=== PATIENT | male | born 2000 | race Caucasian/White ===

== ENCOUNTER 2022-07-28 11:25 | Emergency (ER) | payer OTHER, SELFPAY ==
[2022-07-28 11:39] VITALS: BP 133/64; PULSE 80; RESP 16; TEMP 36.8; O2SAT 100; BMI 20.5
[2022-07-28] MEDS: ACETAMINOPHEN 325 MG TABLET 975 MG PO (12:31)
[2022-07-28] MEDS: KETOROLAC 10 MG TABLET PO (12:31)
--- NOTE | 2022-07-28 13:31 | ED_ITS ---
HPI - Wound/Laceration <SIDNEY Bo - Last Filed: 07/28/22 13:38> General Chief Complaint: Wound/Laceration Stated Complaint: Lt index finger injury/sliced open Time Seen by Provider: 07/28/22 12:08 Source: patient Mode of arrival: Ambulatory History of Present Illness HPI narrative: This is a 22-year-old male who presents emergency department after a work- related injury where he accidentally cut the dorsum of his left index finger near the MCP joint while cutting meat. This happened just prior to arrival, states there is a 2 cm laceration with mild bleeding. Denies any range of motion deficit, sensation deficit, states his last tetanus was in 2019, denies any bleeding disorder. Has not had any medication prior to arrival. Related Data Allergies Allergy/AdvReac Type Severity Reaction Status Date / Time amoxicillin Allergy Verified 07/28/22 11:47 cefazolin Allergy Verified 07/28/22 11:47 cephapirin [From Cefadyl] Allergy Verified 07/28/22 11:47 Review of Systems <SIDNEY Bo - Last Filed: 07/28/22 13:38> Review of Systems ROS Unobtainable: All systems reviewed & are unremarkable except as noted in HPI and below Exam <SIDNEY Bo - Last Filed: 07/28/22 13:38> Narrative Exam Narrative: MSK: moves all extremities, neurovascularly intact, no weakness, normal tone, flat verses laceration to the dorsum of his left index finger mid shaft between MCP and PIP joint and 2 cm. Bleeding controlled with a pressure dressing, wound was irrigated by the RN, additional cleansing by myself, wound edges were well approximated with 6 sutures. CSM remains intact, full mobility both extension and flexion isolated each joint of his finger without suspicion for tendon injury. Skin: brisk capillary refill, without pallor or erythema Neuro: normal speech and cognition, A&O x3, ambulatory, clear speech Psych: mental status is grossly normal, congruent mood, normal affect, pleasant and cooperative Initial Vital Signs Initial Vital Signs: Vital Signs Temperature 98.3 F 07/28/22 11:39 Pulse Rate 80 07/28/22 11:39 Respiratory Rate 16 07/28/22 11:39 Blood Pressure 133/64 07/28/22 11:39 Pulse Oximetry 100 07/28/22 11:39 Oxygen Delivery Method 07/28/22 11:39 <Carlos Patterson MD - Last Filed: 08/06/22 21:41> Initial Vital Signs Initial Vital Signs: Vital Signs Temperature 98.3 F 07/28/22 11:39 Pulse Rate 80 07/28/22 11:39 Respiratory Rate 16 07/28/22 11:39 Blood Pressure 133/64 07/28/22 11:39 Pulse Oximetry 100 07/28/22 11:39 Oxygen Delivery Method 07/28/22 11:39 Procedures <SIDNEY Bo - Last Filed: 07/28/22 13:38> Laceration Repair Laceration 1: Site: hand Side (If applicable): left Size (cm): 2 Description: flap and clean Depth: simple, single layer Local Anesthetic: lidocaine 2% Amount of anesthesia used (mL): 3 Pre-repair: wound explored, irrigated extensively and deep structures intact Skin layer closed with: nylon Skin layer suture size: 5-0 Number of sutures: 6 Technique: simple, interrupted Course <SIDNEY Bo - Last Filed: 07/28/22 13:38> Orders Ordered: Discontinued Medications Acetaminophen (Acetaminophen 325 Mg Tablet) 975 mg PO NOW ONE Stop: 07/28/22 12:24 Last Admin: 07/28/22 12:31 Dose: 975 mg Documented By: AT Ketorolac Tromethamine (Ketorolac 10 Mg Tablet) 10 mg PO NOW ONE Stop: 07/28/22 12:24 Last Admin: 07/28/22 12:31 Dose: 10 mg Documented By: AT Lidocaine HCl (Lidocaine 2% Inj Sdv) 5 ml INJ INTRA-OP ONE Stop: 07/28/22 12:24 Lidocaine HCl (Lidocaine 2% Inj Mdv 20ml) 20 ml INJ INTRA-OP ONE Stop: 07/28/22 12:24 Vital Signs Vital signs: Vital Signs - 8 hr 07/28/22 11:39 Temperature 98.3 F Pulse Rate 80 Respiratory Rate 16 Blood Pressure 133/64 Pulse Oximetry 100 Oxygen Delivery Method Room Air <Carlos Patterson MD - Last Filed: 08/06/22 21:41> Orders Ordered: Discontinued Medications Acetaminophen (Acetaminophen 325 Mg Tablet) 975 mg PO NOW ONE Stop: 07/28/22 12:24 Last Admin: 07/28/22 12:31 Dose: 975 mg Documented By: AT Ketorolac Tromethamine (Ketorolac 10 Mg Tablet) 10 mg PO NOW ONE Stop: 07/28/22 12:24 Last Admin: 07/28/22 12:31 Dose: 10 mg Documented By: AT Lidocaine HCl (Lidocaine 2% Inj Sdv) 5 ml INJ INTRA-OP ONE Stop: 07/28/22 12:24 Lidocaine HCl (Lidocaine 2% Inj Mdv 20ml) 20 ml INJ INTRA-OP ONE Stop: 07/28/22 12:24 Vital Signs Vital signs: Vital Signs - 8 hr 07/28/22 11:39 Temperature 98.3 F Pulse Rate 80 Respiratory Rate 16 Blood Pressure 133/64 Pulse Oximetry 100 Oxygen Delivery Method Room Air MDM - Wound/Laceration <SIDNEY Bo - Last Filed: 07/28/22 13:38> MDM Narrative Medical decision making narrative: In summary, this is a 22 year old male who presents with a laceration to the dorsum of his left index finger. The wound was cleaned and irrigated with normal saline and irrigated with . The area was prepped and draped in the usual sterile fashion. The wound was explored and no foreign bodies were found. The skin was closed with 5.0 ethilon siple sutures. There was good wound edge approximation. In total, 6 were used. Post procedure with good closure and hemostasis.?The patient tolerated the procedure well and there were no complications.? CSM remains intact.? Post procedure dressing applied by RN. Primary and secondary assessment reveals an awake, alert patient in no acute distress. Hemodynamically stable and afebrile. Exam reveals a laceration as described above and they are neurovascularly intact distal to the injury The wound was thoroughly cleaned, explored and repaired as documented above. There is no evidence of foreign body or tendinous involvement. Given the patient's workup, feel they are safe for discharge. The patient's tetanus was updated already current. I have discussed with the patient results of workup, proper wound care, indications for return including signs and symptoms of infection and need for PCP/ER follow up for suture removal. They understand and agree with the plan. Discharged in stable condition. Wound care instructions given. Return precaution s including signs and symptoms of infection provided. Follow up with PCP / ER for suture removal in 7-10 days Wound inspected under direct bright light with good visualization. Area with linear laceration across soft tissue through adipose without exposure of muscle belly or tendon. No overt foreign body. Area hemostatic. Neurovascular exam congruent with above. Area extensively irrigated with sterile normal saline. Laceration repaired in simple fashion as below with good wound edge approximation, (please see procedure note for further details). Patient tolerated procedure well and neurovascular exam intact and unchanged post repair with intact distal pulses and brisk cap refill. Cautious return precautions discussed w/full understanding. Wound care discussed. Prompt follow up with primary care physician discussed and return for suture removal in 7-10 days. Discharge Plan Departure Patient Disposition: Home Clinical Impression: Work related injury Finger laceration Qualifiers: Encounter type: initial encounter Finger: index finger Damage to nail status: without damage Foreign body presence: without foreign body Laterality: left Qualified Code(s): S61.211A - Laceration without foreign body of left index finger without damage to nail, initial encounter Instructions: How to Care for a Laceration After Repair, DI for Laceration Repair Activity Restrictions/Additional Instructions: *You have been diagnosed with a laceration to your left index finger. Please have your sutures removed in 10 days, you may return here or go to the walk-in clinic. Please keep it covered with a Band-Aid, and topical antibiotic ointment. It is okay to wash with gentle cleanser and shower. Please take the next 2 days off of work[id number] *What to do: *Please continue to take your regular medications as directed. [ ] New medication prescriptions sent to your pharmacy: [ ] [ ] New medication written as a paper prescription [ x] No new medications given *Please follow up with your primary care provider in 2-3 days, call for an appointment. Let them know you were seen in the Emergency Department and that we asked that you be seen for follow-up. We will electronically transmit a record of today's note if your PCP is in our system *If you do not have a primary care provider please contact [phone] to establish care with one of the [facility] primary care providers. *Return to Emergency Department if you should have any new, worsening, or concerning symptoms, such as [fever greater than 101F, chills, worsening pain, persistent vomiting or other bothersome symptoms]. Referrals: Miscellaneous,Doctor, [Primary Care Provider] - Stand Alone Forms: Work Release Note <Carlos Patterson MD - Last Filed: 08/06/22 21:41> Cosign ED Attending Cosignature Attestation: I was immediately available in the department for consultation. ?This documentation has been reviewed and I agree with assessment and plan. Supervised by Carlos Patterson MD
== END 2022-07-28 13:25 | disposition home or self-care (01) ==
PROVIDERS: Emergency Provider Nurse Practitioner Critical Care Medicine
DX: S61.211A Laceration without foreign body of left index finger without damage to nail, initial encounter (principal); W31.82XA Contact with other commercial machinery, initial encounter; Y99.0 Civilian activity done for income or pay
CPT/HCPCS: 12001; 99283